=== PATIENT | female | born 1995 | race Caucasian/White ===

== ENCOUNTER 2020-11-06 14:07 | Inpatient (IN) | payer OTHER ==
[2020-11-06 15:07] VITALS: BMI 29.2
[2020-11-06 15:28] LABS: BASO % 0.2 % (0-2.0); EOS % 1.1 % (0-4.5); HEMATOCRIT 29.4 % (32.4-45.2); HEMOGLOBIN 10.1 GM/dL (10.7-15.3); LYMPH % 18.7 % (8-40); MCHC 34.5 g/dl (32.0-36.0); MEAN CELL VOLUME 81.2 fl (80-96); MEAN PLT VOLUME 9.5 fl (7.5-11.1); MONO % 5.2 % (3.8-10.2); NEUT % 74.8 % (42.8-82.8); PLATELET COUNT 173 10^3/uL (134-434); RBC 3.62 M/mm3 (3.60-5.2); RDW 15.8 % (11.6-15.6); WHITE BLOOD COUNT 7.9 K/mm3 (4.0-10.0)
[2020-11-06 15:32] LABS: INR 0.97 (0.83-1.09)
[2020-11-06 15:35] LABS: ACTIVATED PTT 26.2 SECONDS (25.2-36.5)
[2020-11-06 15:42] LABS: CALCIUM 8.3 mg/dL (8.5-10.1)
[2020-11-06 15:46] LABS: CREATININE 0.6 mg/dL (0.55-1.3)
[2020-11-06] MEDS: ELECTROLYTE-148 SOLN 1,000 ML IV SCH (16:00)
[2020-11-06] MEDS ORDERED: BUTORPHANOL TARTRATE 1 MG/ML VIAL IVPB PRN (16:14)
[2020-11-06] MEDS ORDERED: PROMETHAZINE HCL 25 MG/1 ML VIAL IVPUSH PRN (16:14)
[2020-11-06] MEDS ORDERED: DINOPROSTONE 10 MG VAGINAL SUPPOSITORY VG ONE (16:45)
[2020-11-07] MEDS ORDERED: OXYTOCIN 30 UNITS in 0.9% NS 30 UNIT/500 ML INFUS.BAG IVPB SCH (09:15)
[2020-11-07] MEDS: ELECTROLYTE-148 SOLN 1,000 ML IV SCH ×2 (09:20→15:56)
[2020-11-07] MEDS ORDERED: BUTORPHANOL TARTRATE 2 MG/ML VIAL ONE (15:46)
[2020-11-07] MEDS ORDERED: OXYTOCIN 20 UNITS in 0.9% NS 20 UNIT/1,000 ML INFUS.BAG IV ONE ×2 (18:10→21:34)
[2020-11-07] MEDS ORDERED: ACETAMINOPHEN 325 MG TABLET (FP) PO PRN ×2 (19:28→19:45)
[2020-11-07] MEDS ORDERED: METHYLERGONOVINE MALEATE 0.2 MG/1 ML AMP IM PRN (19:28)
[2020-11-07] MEDS ORDERED: IBUPROFEN 600 MG TABLET (FP) PO PRN (19:28)
[2020-11-07] MEDS ORDERED: WITCH HAZEL 50% (TUCKS) 40 PAD/JAR PAD TP PRN (19:28)
[2020-11-07] MEDS ORDERED: BENZOCAINE 28 GM HEMORRHOIDAL OINTMENT TP PRN (19:28)
[2020-11-07] MEDS ORDERED: BENZOCAINE 20% 57 GM BOTTLE TP PRN (19:28)
[2020-11-07] MEDS ORDERED: BISACODYL 10 MG SUPP.RECT RC PRN (19:28)
[2020-11-07] MEDS ORDERED: OXYTOCIN 20 UNITS in 0.9% NS 20 UNIT/1,000 ML INFUS.BAG IV SCH (19:30)
[2020-11-08 09:19] LABS: BASO % 0.1 % (0-2.0); HEMATOCRIT 29.3 % (32.4-45.2); HEMOGLOBIN 9.7 GM/dL (10.7-15.3); LYMPH % 10.2 % (8-40); MCH 27.5 pg (25.7-33.7); MCHC 33.1 g/dl (32.0-36.0); MEAN CELL VOLUME 83.1 fl (80-96); MEAN PLT VOLUME 10.1 fl (7.5-11.1); MONO % 2.8 % (3.8-10.2); NEUT % 86.9 % (42.8-82.8); PLATELET COUNT 165 10^3/uL (134-434); RBC 3.52 M/mm3 (3.60-5.2); RDW 15.7 % (11.6-15.6); WHITE BLOOD COUNT 13.9 K/mm3 (4.0-10.0)
[2020-11-08] MEDS: PRENATAL VITAMINS W/ FOLIC ACID TABLET (FP) PO SCH (10:11)
[2020-11-08] MEDS ORDERED: SENNOSIDES/DOCUSATE COMBO (SENNA PLUS) TABLET (UD) PO PRN (22:00)
[2020-11-09 10:07] VITALS: BP 100/57; PULSE 74; TEMP 98.2
[2020-11-09] MEDS: PRENATAL VITAMINS W/ FOLIC ACID TABLET (FP) PO SCH (10:42)
== END 2020-11-09 15:00 | disposition home or self-care (01) | DRG 560 ==
LOC: JDEL 14:07 → JLDR 14:20 → J3W 11-07 21:07
PROVIDERS: ADMIT Obstetrics & Gynecology; ATTEND Obstetrics & Gynecology
PROC: 10E0XZZ Delivery of Products of Conception, External Approach (ICD-10-PCS; principal; 2020-11-07)
PROC: 3E0P7VZ Introduction of Hormone into Female Reproductive, Via Natural or Artificial Opening (ICD-10-PCS; 2020-11-07)
PROC: 10907ZC Drainage of Amniotic Fluid, Therapeutic from Products of Conception, Via Natural or Artificial Opening (ICD-10-PCS; 2020-11-07)
DX: O48.0 Post-term pregnancy (principal); Z3A.40 40 weeks gestation of pregnancy; Z37.0 Single live birth
CPT/HCPCS: 36415; 59409; 80048; 85025; 85610; 85730; 86780; 86850; 86900; 86901; C9803; U0003; U0005